=== PATIENT | female | born 1945 | race Caucasian/White ===

== ENCOUNTER 2020-01-09 09:11 | Emergency (ER) | payer MEDICARE ==
--- NOTE | 2020-01-09 09:46 | ER Document Report ---
ED Medical Screen (RME) - General Chief Complaint: Dizziness Stated Complaint: DIZZINESS Time Seen by Provider: 01/09/20 09:43 Primary Care Provider: KINZA WEBBER MD [Primary Care Provider] - Follow up as needed Mode of Arrival: Wheelchair Information source: Patient Notes: 74-year-old female presented to ED for dizziness since yesterday. She states she has no balance has not yet fallen. She states she has been getting nauseated as well. Is never had the dizziness before. She states for the last couple nights she has had severe leg cramps. She does have a history of blood pressure cholesterol and diabetes. She states she has not checked her blood sugar this morning. Patient is alert oriented respirations regular nonlabored speaking in full sentences. I have greeted and performed a rapid initial assessment of this patient. A comprehensive ED assessment and evaluation of the patient, analysis of test results and completion of medical decision making process will be conducted by an additional ED providers. TRAVEL OUTSIDE OF THE [place] IN LAST 30 DAYS: No - Related Data Allergies/Adverse Reactions: No Known Allergies Allergy (Verified 01/09/20 09:39) Past Medical History - Past Medical History Cardiac Medical History: Reports: Hx Hypertension - CONTROLLED Denies: Hx Heart Attack Pulmonary Medical History: Denies: Hx Asthma Neurological Medical History: Denies: Hx Cerebrovascular Accident, Hx Seizures GI Medical History: Denies: Hx Hepatitis, Hx Hiatal Hernia, Hx Ulcer Infectious Medical History: Denies: Hx Hepatitis Past Surgical History: Denies: Hx Mastectomy, Hx Open Heart Surgery, Hx Pacemaker Physical Exam - Vital signs Vitals: Temp Pulse Resp BP Pulse Ox 97.5 F 99 18 122/83 99 01/09/20 09:13 01/09/20 09:13 01/09/20 09:13 01/09/20 09:13 01/09/20 09:13 Course - Vital Signs Vital signs: Temp Pulse Resp BP Pulse Ox 97.5 F 99 18 122/83 99 01/09/20 09:13 01/09/20 09:13 01/09/20 09:13 01/09/20 09:13 01/09/20 09:13 Doctor's Discharge - Discharge Referrals: KINZA WEBBER MD [Primary Care Provider] - Follow up as needed
[2020-01-09 10:34] LABS: ABSOLUTE LYMPHOCYTES (AUTO) 1.2 10^3/uL (0.5-4.7); ABSOLUTE MONOCYTES (AUTO) 0.3 10^3/uL (0.1-1.4); ABSOLUTE NEUT (AUTO) 5.5 10^3/uL (1.7-8.2); BASOPHILS % (AUTO) 0.3 % (0-2); EOSINOPHILS % (AUTO) 0.1 % (0-6); HEMATOCRIT 33.7 % (36.0-47.0); HEMOGLOBIN 12.2 g/dL (12.0-15.5); LYMPHOCYTES % (AUTO) 16.9 % (13-45); MEAN CORPUSCULAR HEMOGLOBIN 33.1 pg (27.0-33.4); MEAN CORPUSCULAR HGB CONC 36.2 g/dL (32.0-36.0); MEAN CORPUSCULAR VOLUME 91 fl (80-97); MONOCYTES % (AUTO) 4.2 % (3-13); PLATELET COUNT 181 10^3/uL (150-450); RED BLOOD COUNT 3.69 10^6/uL (3.72-5.28); SEGMENTED NEUTROPHILS % (AUTO) 78.5 % (42-78); TOTAL CELLS COUNTED % (AUTO) 100 %
[2020-01-09 10:55] LABS: ALBUMIN 4.8 g/dL (3.5-5.0); ALKALINE PHOSPHATASE 77 U/L (38-126); ANION GAP 11 (5-19); ASPARTATE AMINO TRANSFERASE 21 U/L (14-36); BILIRUBIN,TOTAL 0.4 mg/dL (0.2-1.3); BLOOD UREA NITROGEN 10 mg/dL (7-20); CALCIUM 9.4 mg/dL (8.4-10.2); CARBON DIOXIDE 29 mmol/L (22-30); CHLORIDE 89 mmol/L (98-107); CREATINE KINASE 38 U/L (30-135); GLUCOSE 146 mg/dL (75-110); POTASSIUM 4.4 mmol/L (3.6-5.0); TOTAL PROTEIN 8.1 g/dL (6.3-8.2)
[2020-01-09 10:58] LABS: ANISOCYTOSIS 2+; OVALOCYTES SLIGHT; POIKILOCYTOSIS 1+; POLYCHROMASIA SLIGHT
[2020-01-09 10:59] LABS: PLATELET COMMENT ADEQUATE; STOMATOCYTES SLIGHT
[2020-01-09 11:06] LABS: CREATINE KINASE MB 1.14 ng/mL (<4.55)
[2020-01-09 11:07] LABS: TROPONIN I < 0.012 ng/mL
--- NOTE | 2020-01-09 11:16 | EKG REPORT ---
SEVERITY:- NORMAL ECG - SINUS RHYTHM : Confirmed by: Stephanie Melton MD 09-Jan-2020 11:14:29
[2020-01-09] MEDS ORDERED: MECLIZINE HCL 25 MG TABLET PO ONE (12:08)
[2020-01-09] MEDS ORDERED: ONDANSETRON HCL INJ/PF 4 MG/2 ML SDV IV ONE (12:11)
--- NOTE | 2020-01-09 12:13 | ER Document Report ---
ED Dizziness/Weakness - General Chief Complaint: Dizziness Stated Complaint: DIZZINESS Time Seen by Provider: 01/09/20 09:43 Primary Care Provider: KINZA WEBBER MD [Primary Care Provider] - Follow up in 3-5 days Mode of Arrival: Wheelchair Notes: Patient is a 74-year-old female who presents to the emergency department with a chief complaint of dizziness and leg cramps that started yesterday. Patient has a past medical history of hypertension and hyperlipidemia. She is also on metfo rmin for prediabetes. Patient states that her dizziness gets worse when she stands up. Patient denies any numbness or tingling in her arms or legs. States that when she stands up, she "feels off." TRAVEL OUTSIDE OF THE [place] IN LAST 30 DAYS: No - Related Data Allergies/Adverse Reactions: No Known Allergies Allergy (Verified 01/09/20 09:39) Home Medications: atrovastatin. lisinopril. metformin Past Medical History - General Information source: Patient - Social History Smoking Status: Former Smoker Chew tobacco use (# tins/day): No Frequency of alcohol use: Social Drug Abuse: None Family History: Reviewed & Not Pertinent Patient has suicidal ideation: No Patient has homicidal ideation: No - Past Medical History Cardiac Medical History: Reports: Hx Hypercholesterolemia, Hx Hypertension - CONTROLLED Denies: Hx Heart Attack Pulmonary Medical History: Denies: Hx Asthma Neurological Medical History: Denies: Hx Cerebrovascular Accident, Hx Seizures Endocrine Medical History: Reports: Hx Diabetes Mellitus Type 2 GI Medical History: Denies: Hx Hepatitis, Hx Hiatal Hernia, Hx Ulcer Infectious Medical History: Denies: Hx Hepatitis Past Surgical History: Denies: Hx Mastectomy, Hx Open Heart Surgery, Hx Pacemaker Review of Systems - Review of Systems Notes: REVIEW OF SYSTEMS: CONSTITUTIONAL : Denies recent illness. Denies recent unintentional weight loss. Denies fever, chills, or sweats. EENT: Denies eye, ear, throat, or mouth pain, discharge, or symptoms. Denies na marita or sinus congestion. CARDIOVASCULAR: Denies chest pain. RESPIRATORY: Denies shortness of breath, cough, congestion, difficulty breathing, or wheezing. GASTROINTESTINAL: Denies nausea, vomiting, and diarrhea. Denies abdominal pain. Denies constipation. GENITOURINARY: Denies difficulty urinating, burning, blood in urine, urgency or frequency. MUSCULOSKELETAL: Denies neck and back pain. Denies joint pain or swelling. SKIN: Denies rash, itchiness, or lesions HEMATOLOGIC : Denies easy bruising or bleeding. LYMPHATIC: Denies swollen, painful, enlarged glands. NEUROLOGICAL: Denies no numbness or tingling denies weakness. Denies headache. Denies altered mental status. Denies alteration in speech. See HPI. PSYCHIATRIC: Denies stress, anxiety, alteration in sleep patterns, or de pression. All other systems reviewed and negative. Physical Exam - Vital signs Vitals: Temp Pulse Resp BP Pulse Ox 97.5 F 99 18 122/83 99 01/09/20 09:13 01/09/20 09:13 01/09/20 09:13 01/09/20 09:13 01/09/20 09:13 - Notes Notes: PHYSICAL EXAMINATION: GENERAL: Appears well, healthy, well-nourished, no acute distress. HEAD: Normocephalic, atraumatic. EYES: PERRL, conjunctiva normal, all extraocular movements intact, sclera nonicteric, nystagmus noted. ENT: Moist mucous membranes. NECK: Supple, no noticeable swelling, redness, rash. Normal range of motion. LUNGS: Equal breath sounds bilaterally and clear to auscultation. No wheezes rales or rhonchi. CARDIOVASCULAR: S1-S2, regular rate, regular rhythm. Radial pulses 2+, normal. ABDOMEN: Normoactive bowel sounds. Soft, nontender, no guarding, no rebound tenderness, and no masses palpated. EXTREMITIES: Normal strength and range of motion, no pitting or edema. No cyanosis. NEUROLOGICAL: Moves all extremities upon command. Strength 5/5 in all extremities. PSYCH: Normal mood, normal affect. SKIN: Warm, dry. No rash, lesions, ulcerations noted. Normal skin turgor. Course - Re-evaluation Re-evalutation: 01/09/20 14:00 I have reevaluated the patient. Patient states that she feels a little bit better and little less dizzy after receiving meclizine. Awaiting urinalysis. Patient's magnesium was 1.5 and 2 g of magnesium were ordered. She will also receive a liter of fluids. 01/09/20 15:45 Discussed this case with Dr. Fuentes. Patient states that she still feels a little dizzy. We will start her on Valium. No neurological deficits noted again. Patient states that her daughter does not live far away, but she is able to stay with her daughter for the night. 01/09/20 18:12 Patient states that she feels much better after receiving the Valium. She will be sent home with meclizine to help with her symptoms. Patient will follow-up with her primary care provider. Follow-up precautions were given. Verbal discharge instructions were given to the patient. They verbalized understanding. They are stable for discharge. - Vital Signs Vital signs: Temp Pulse Resp BP Pulse Ox 98.3 F 66 18 135/82 H 100 01/09/20 18:40 01/09/20 18:40 01/09/20 18:40 01/09/20 18:40 01/09/20 18:40 - Laboratory Result Diagrams: 01/09/20 10:22 01/09/20 10:22 Laboratory results interpreted by me: 01/09/20 01/09/20 01/09/20 10:02 10:22 10:22 RBC 3.69 L Hct 33.7 L MCHC 36.2 H RDW 20.0 H Seg Neutrophils % 78.5 H Sodium 129.0 L Chloride 89 L Creatinine 0.50 L Glucose 146 H POC Glucose 157 H Magnesium 1.5 L Urine Protein 01/09/20 14:20 RBC Hct MCHC RDW Seg Neutrophils % Sodium Chloride Creatinine Glucose POC Glucose Magnesium Urine Protein 30 H - EKG Interpretation by Me Additional EKG results interpreted by me: 01/09/20 13:44 Sinus rhythm. Rate 64. IA 172; QRS 84; QT 436; QTc 450. No ST elevations or depressions noted. Discharge - Discharge Clinical Impression: Dizziness, Vertigo Condition: Stable Disposition: HOME, SELF-CARE Instructions: Antinausea Medication ([facility]), Dizziness ([facility]), Meclizine ([facility]), Vertigo ([facility]) Additional Instructions: Dizziness Under normal circumstances, your sense of balance is controlled by a number of signals that your brain receives from several locations: Eyes. No matter what your position, visual signals help you determine where your body is in space and how it's moving. Sensory nerves. These are in your skin, muscles and joints. Sensory nerves send messages to your brain about body movements and positions. Inner ear. The organ of balance in your inner ear is the vestibular labyrinth. It includes loop-shaped structures (semicircular canals) that contain fluid and fine, hair-like sensors that monitor the rotation of your head. Near the semicircular canals are the utricle and saccule, which contain tiny particles called otoconia ([id number]). These particles are attached to sensors that help detect gravity and kqiw-kip-ninay motion. Good balance depends on at least two of these three sensory systems working well. For instance, closing your eyes while washing your hair in the shower doesn't mean you'll lose your balance. Signals from your inner ear and sensory nerves help keep you upright. However, if your central nervous system can't process signals from all of these locations, if the messages are contradictory, or if the sensory systems aren't functioning properly, you may experience loss of balance. Dizziness may have a number of potential causes. These may include: Vertigo Vertigo - the false sense of motion or spinning - is the most common symptom of dizziness. Sitting up or moving around may make it worse. Sometimes vertigo is severe enough to cause nausea and vomiting. Vertigo usually results from a problem with the nerves and the structures of the balance mechanism in your inner ear (vestibular system), which sense movement and changes in your head position. Abnormal rhythmic eye movements (nystagmus) almost always accompany vertigo. Causes of vertigo may include: Benign paroxysmal positional vertigo (BPPV). BPPV involves intense, brief episodes of vertigo associated with a change in the position of your head, often when you turn over in bed or sit up in the morning. It occurs when normal calcium carbonate crystals (otoconia) break loose and fall into the wrong part of the canals in your inner ear. When these particles shift, they stimulate sensors in your ear, producing an episode of vertigo. Doctors don't know what causes BPPV, but it may be a natural result of aging. Trauma to your head also may lead to BPPV. Inflammation in the inner ear. Signs and symptoms of inflammation of the inner ear (acute vestibular neuronitis or labyrinthitis) include sudden, intense vertigo that may persist for several days, with nausea and vomiting. It can be incapacitating, requiring bed rest to minimize the signs and symptoms. Fortu nately, vestibular neuronitis generally subsides and clears up on its own. Recovery time may be shorter with vestibular rehabilitation exercises. Although the cause of this condition is unknown, it may be a viral infection. Meniere's disease. This disease involves the excessive buildup of fluid in your inner ear. It may affect adults at any age and is characterized by sudden episodes of vertigo lasting 30 minutes to an hour or longer. Other signs and symptoms include the feeling of fullness in your ear, buzzing or ringing in your ear (tinnitus), and fluctuating hearing loss. The cause of Meniere's disease is unknown. Vestibular migraine. People who experience a vestibular migraine are very sensitive to motion. Dizziness and vertigo caused by a vestibular migraine may be triggered by turning your head quickly, being in a crowded or confusing place, driving or riding in a vehicle, or even watching movement on TV. A vestibular migraine may cause feelings of imbalance or unsteadiness, hearing loss, "muffled" hearing, or ringing in your ears (tinnitus). For most people with a vestibular migraine, vertigo doesn't necessarily happen at the same time as the headache. Instead, typical migraine triggers may lead to vertigo without an actual migraine. Attacks of migrainous vertigo can last from a few minutes to several days. Acoustic neuroma. An acoustic neuroma (schwannoma) is a noncancerous (benign) growth on the acoustic nerve, which connects the inner ear to your brain. Signs and symptoms of an acoustic neuroma may include dizziness, loss of balance, hearing loss and tinnitus. Rapid changes in motion. Riding on roller coasters or in boats, cars or even airplanes may on occasion make you dizzy. Other causes. Rarely, vertigo can be a symptom of a more serious neurologi christian problem such as a stroke, brain hemorrhage or multiple sclerosis. Feeling of faintness (presyncope) "Presyncope" is the medical term for feeling faint and lightheaded without losing consciousness. Sometimes nausea, pale skin and a sense of dizziness accompany a feeling of faintness. Causes of presyncope include: Drop in blood pressure (orthostatic hypotension). A dramatic drop in your systolic blood pressure - the higher number in your blood pressure reading - may result in lightheadedness or a feeling of faintness. It can occur after sitting up or standing too quickly. Inadequate output of blood from the heart. Conditions such as partially blocked arteries (atherosclerosis), disease of the heart muscle (cardiomyopathy), abnormal heart rhythm (arrhythmia) or a decrease in blood volume may cause inadequate blood flow from your heart. Loss of balance (disequilibrium) Disequilibrium is the loss of balance or the feeling of unsteadiness when you walk. Causes may include: Inner ear (vestibular) problems. Abnormalities with your inner ear can cause you to feel like you are floating, have a heavy head or are unsteady in the dark. Sensory disorders. Failing vision and nerve damage in your legs (peripheral neuropathy) are common in older adultsand may result in difficulty maintaining your balance. Joint and muscle problems. Muscle weakness and osteoarthritis - the type of arthritis that involves wear and tear of your joints - can contribute to loss of balance when it involves your weight-bearing joints. Medications. Loss of balance can be a side effect of certain medications, such as anti-seizure drugs, sedatives and tranquilizers. Lightheadedness and other kinds of 'dizziness' Feeling lightheaded is the feeling of being "spaced out" or having the sensation of spinning inside your head. It can also give you the sensation that if your l ightheadedness worsens, you might lose consciousness. Causes may include: Inner ear disorders. These abnormalities of your inner ear can lead to illusions of motion and make you feel like you're floating. Anxiety disorders. Certain anxiety disorders, such as panic attacks and a fear of leaving home or being in large, open spaces (agoraphobia), may cause lightheadedness. Hyperventilation. Abnormally rapid breathing that often accompanies anxiety disorders may make you feel lightheaded. Prescriptions: Ondansetron [Zofran Odt 4 mg Tablet] 4 mg PO Q4HP PRN #30 tab.rapdis PRN Reason: Meclizine HCl [Antivert 25 mg Tablet] 25 mg PO TID PRN #21 tablet PRN Reason: Referrals: KINZA WEBBER MD [Primary Care Provider] - Follow up in 3-5 days
--- NOTE | 2020-01-09 12:43 | RADIOLOGY REPORT (SQ) ---
EXAM DESCRIPTION: CT HEAD WITHOUT COMPLETED DATE/TIME: 01/09/2020 12:26 pm REASON FOR STUDY: dizziness; nystagmus COMPARISON: None. TECHNIQUE: Axial images acquired through the brain without intravenous contrast. Images reviewed wi th bone, brain and subdural windows. Additional sagittal and coronal reconstructions were generated. Images stored on PACS. All CT scanners at this facility use dose modulation, iterative reconstruction, and/or weight based d osing when appropriate to reduce radiation dose to as low as reasonably achievable (ALARA). [facility]: Dose Right [facility]: CareDose [facility]: Dose Right [facility]: Teradose 4D [facility]: Cernium RADIATION DOSE: CT Rad equipment meets quality standard of care and radiation dose reduction techniq ues were employed. CTDIvol: 53.2 mGy. DLP: 1044 mGy-cm. mGy. LIMITATIONS: None. FINDINGS: VENTRICLES: Prominent. CEREBRUM: No masses. No hemorrhage. No midline shift. Areas of low density in the white matter mos t likely due to chronic micro-vascular ischemic change. No evidence for acute infarction. CEREBELLUM: No masses. No hemorrhage. No alteration of density. No evidence for acute infarction. EXTRAAXIAL SPACES: Mild age-related involutional change. No fluid collections. No masses. ORBITS AND GLOBE: No intra- or extraconal masses. Normal contour of globe without masses. CALVARIUM: No fracture. PARANASAL SINUSES: No fluid or mucosal thickening. SOFT TISSUES: No mass or hematoma. OTHER: No other significant finding. IMPRESSION: No evidence of acute intracranial process. Mild nonspecific white matter changes, likely sequelae of microangiopathic disease. EVIDENCE OF ACUTE STROKE: NO. TECHNICAL DOCUMENTATION: JOB ID: [id number] Quality ID # [id number]: Final reports with documentation of one or more dose reduction techniques (e.g., Au tomated exposure control, adjustment of the mA and/or kV according to patient size, use of iterative reconstruction technique) 2010 [employer]- All Rights Reserved Reading location - IP/workstation name: [email or web address]
[2020-01-09] MEDS: MAGNESIUM SULFATE/D5W 1 GM/100 ML RTUPB IV SCH ×2 (13:13→14:32)
[2020-01-09] MEDS ORDERED: NORMAL SALINE 1000 ML 1,000 ML IV ONE (13:25)
[2020-01-09 14:46] LABS: APPEARANCE,URINE CLOUDY; BILIRUBIN,URINE NEGATIVE (NEGATIVE); COLOR,URINE YELLOW; GLUCOSE, URINE NEGATIVE (NEGATIVE); KETONES,URINE NEGATIVE (NEGATIVE); LEUKOCYTE ESTERASE,URINE NEGATIVE (NEGATIVE); NITRITE,URINE NEGATIVE (NEGATIVE); PROTEIN,URINE 30 mg/dL (NEGATIVE); URINE SPECIFIC GRAVITY 1.011; UROBILINOGEN,URINE NEGATIVE mg/dL (<2.0)
[2020-01-09] MEDS ORDERED: DIAZEPAM 2 MG TABLET PO ONE (15:45)
[2020-01-09 18:52] VITALS: BP 135/82
== END 2020-01-09 18:45 | disposition home or self-care (01) ==
LOC: ER 09:11
DX: R42 Dizziness and giddiness (principal); H55.00 Unspecified nystagmus; R25.2 Cramp and spasm; I10 Essential (primary) hypertension; E78.00 Pure hypercholesterolemia, unspecified; E78.5 Hyperlipidemia, unspecified; R73.03 Prediabetes; Z79.84 Long term (current) use of oral hypoglycemic drugs; Z79.899 Other long term (current) drug therapy; Z87.891 Personal history of nicotine dependence
CPT/HCPCS: 93005; 99284; 96361; 96375; 96365; 96366; 36415; 82553; 82962; 82550; 83735; 85025; 80053; 81001; 84484; 70450; 93010; A9270 ×2; J3475; J2405; J7030; J3490

== ENCOUNTER 2020-01-29 07:16 | Inpatient (IN) | payer MEDICARE ==
[2020-01-29] MEDS ORDERED: KETOROLAC TROMETHAMINE INJ/PF 30 MG/1 ML SDV IV ONE (07:51)
--- NOTE | 2020-01-29 08:03 | EKG REPORT ---
SEVERITY:- NORMAL ECG - SINUS RHYTHM : Confirmed by: Stephanie Melton MD 29-Jan-2020 08:03:08
--- NOTE | 2020-01-29 08:08 | ER Document Report ---
ED General - General Chief Complaint: Hand Pain Stated Complaint: BILATERAL HAND PAIN Primary Care Provider: KINZA WEBBER MD [Primary Care Provider] - Follow up as needed Mode of Arrival: Ambulatory Information source: Patient TRAVEL OUTSIDE OF THE [place] IN LAST 30 DAYS: No - HPI Notes: This is a 74-year-old female with history of diabetes and hypertension who is presenting to the emergency department this morning after a syncopal episode. She states that she was doing well yesterday and her normal state of health. This morning she woke up she felt well with the exception of some tingling in both hands took her medicines and sat down at the breakfast table and then subsequently briefly passed out. She woke up with her head on the table and the complaint of severe bilateral hand pain. She had no aura, chest pain, dyspnea, or palpitations. She denies history of prior syncopal episodes. She said no redness or swelling to her hands and she denies any significant trauma. She has no history of rheumatoid arthritis. She woke up after the episode normally and presented to the emergency department for evaluation of her severe hand pain. The pain is unremitting, worsened by movement, and not relieved by keeping her hands still. - Related Data Allergies/Adverse Reactions: No Known Allergies Allergy (Verified 01/09/20 09:39) Home Medications: Atorvastatin, Metformin, Lisinopril Past Medical History - General Information source: Patient - Social History Smoking Status: Never Smoker Frequency of alcohol use: None Drug Abuse: None Family History: Reviewed & Not Pertinent Patient has suicidal ideation: No Patient has homicidal ideation: No - Past Medical History Cardiac Medical History: Reports: Hx Hypercholesterolemia, Hx Hypertension - CONTROLLED Denies: Hx Heart Attack Pulmonary Medical History: Denies: Hx Asthma EENT Medical History: Reports: None Neurological Medical History: Denies: Hx Cerebrovascular Accident, Hx Seizures Endocrine Medical History: Reports: Hx Diabetes Mellitus Type 2 GI Medical History: Denies: Hx Hepatitis, Hx Hiatal Hernia, Hx Ulcer Infectious Medical History: Denies: Hx Hepatitis Past Surgical History: Denies: Hx Mastectomy, Hx Open Heart Surgery, Hx Pacemaker Review of Systems - Review of Systems Constitutional: denies: No symptoms reported, See HPI, Chills, Diaphoresis, Fever, Malaise, Weakness, Other, Weight gain, Weight loss, Recent illness EENT: No symptoms reported Cardiovascular: Syncope. denies: See HPI, Chest pain, Palpitations, Heart racin g, Orthopnea, Dyspnea, Dizziness, Lightheaded, Edema, Other, Paroxysmal Nocturnal Dysp Respiratory: No symptoms reported Gastrointestinal: No symptoms reported Genitourinary: No symptoms reported Female Genitourinary: No symptoms reported Musculoskeletal: See HPI Skin: No symptoms reported Hematologic/Lymphatic: No symptoms reported Neurological/Psychological: See HPI Physical Exam - Vital signs Vitals: Temp Pulse Resp BP Pulse Ox 97.3 F 69 16 105/60 96 01/29/20 07:26 01/29/20 07:26 01/29/20 07:26 01/29/20 07:26 01/29/20 07:26 - General In distress: None - HEENT Head: Normocephalic, Atraumatic Eyes: Normal Pupils: PERRL - Respiratory Respiratory status: No respiratory distress Chest status: Nontender Breath sounds: Normal Chest palpation: Normal - Cardiovascular Rhythm: Regular Heart sounds: Normal auscultation Murmur: No Pulses: Normal: Brachial, Radial, Posterior tibial, Dorsalis pedis - Abdominal Inspection: Normal Distension: No distension Bowel sounds: Normal Tenderness: Nontender Organomegaly: No organomegaly - Back Back: Normal, Nontender - Extremities General upper extremity: Tender - Diffuse bilateral hand tenderness, no erythema or edema, no deformity or external signs of trauma - Neurological Neuro grossly intact: Yes Cognition: Normal Orientation: AAOx4 Nhi Coma Scale Eye Opening: Spontaneous Nhi Coma Scale Verbal: Oriented Nhi Coma Scale Motor: Obeys Commands Climax Coma Scale Total: 15 Speech: Normal Motor strength normal: LUE, RUE, LLE, RLE Sensory: Normal - Psychological Associated symptoms: Normal affect, Normal mood - Skin Skin Temperature: Warm Skin Moisture: Dry Skin Color: Normal Course - Vital Signs Vital signs: Temp Pulse Resp BP Pulse Ox 97.3 F 69 11 L 145/73 H 96 01/29/20 07:54 01/29/20 07:54 01/29/20 10:01 01/29/20 10:00 01/29/20 10:01 - Laboratory Result Diagrams: 01/29/20 07:47 01/29/20 07:47 Laboratory results interpreted by me: 01/29/20 01/29/20 01/29/20 07:36 07:47 07:47 RBC 3.16 L Hgb 10.4 L Hct 28.1 L MCHC 36.9 H RDW 20.4 H Sodium 122.3 L Chloride 87 L Glucose 129 H POC Glucose 147 H Discharge - Discharge Clinical Impression: Hyponatremia, Syncope, Bilateral hand pain Condition: Fair Disposition: ADMITTED INPATIENT Admitting Provider: Hospitalist : [facility] Unit Admitted: Telemetry Referrals: KINZA WEBBER MD [Primary Care Provider] - Follow up as needed
--- NOTE | 2020-01-29 08:22 | RADIOLOGY REPORT (SQ) ---
EXAM DESCRIPTION: CHEST 2 VIEWS IMAGES COMPLETED DATE/TIME: 01/29/2020 8:13 am REASON FOR STUDY: Syncope COMPARISON: None. EXAM PARAMETERS: NUMBER OF VIEWS: two views TECHNIQUE: Digital Frontal and Lateral radiographic views of the chest acquired. RADIATION DOSE: NA LIMITATIONS: none FINDINGS: LUNGS AND PLEURA: Focal airspace disease in the right base. Possibly pulmonary nodule. L andres cotto are otherwise clear. No effusions. MEDIASTINUM AND HILAR STRUCTURES: No masses or contour abnormalities. HEART AND VASCULAR STRUCTURES: Heart normal size. No evidence for failure. BONES: No acute findings. HARDWARE: None in the chest. OTHER: No other significant finding. IMPRESSION: Focal small less than 1 cm opacity in the right base. Possibly scar or confluence of sh adows. Focal airspace disease or pulmonary nodule cannot be excluded. TECHNICAL DOCUMENTATION: JOB ID: [id number] 2010 [employer]- All Rights Reserved Reading location - IP/workstation name: [email or web address]
[2020-01-29 08:26] LABS: ALBUMIN 4.3 g/dL (3.5-5.0); ALKALINE PHOSPHATASE 82 U/L (38-126); ANION GAP 13 (5-19); ASPARTATE AMINO TRANSFERASE 22 U/L (14-36); BILIRUBIN,TOTAL 0.4 mg/dL (0.2-1.3); BLOOD UREA NITROGEN 16 mg/dL (7-20); CALCIUM 9.1 mg/dL (8.4-10.2); CARBON DIOXIDE 22 mmol/L (22-30); CHLORIDE 87 mmol/L (98-107); CREATINE KINASE 48 U/L (30-135); GLUCOSE 129 mg/dL (75-110); POTASSIUM 3.9 mmol/L (3.6-5.0)
[2020-01-29 08:28] LABS: C-REACTIVE PROTEIN < 5.0 mg/L (<10.0)
[2020-01-29 08:29] LABS: ABSOLUTE LYMPHOCYTES (AUTO) 1.3 10^3/uL (0.5-4.7); ABSOLUTE MONOCYTES (AUTO) 0.4 10^3/uL (0.1-1.4); ABSOLUTE NEUT (AUTO) 5.5 10^3/uL (1.7-8.2); BASOPHILS % (AUTO) 0.2 % (0-2); EOSINOPHILS % (AUTO) 0.4 % (0-6); HEMATOCRIT 28.1 % (36.0-47.0); HEMOGLOBIN 10.4 g/dL (12.0-15.5); LYMPHOCYTES % (AUTO) 17.6 % (13-45); MEAN CORPUSCULAR HEMOGLOBIN 32.8 pg (27.0-33.4); MEAN CORPUSCULAR HGB CONC 36.9 g/dL (32.0-36.0); MEAN CORPUSCULAR VOLUME 89 fl (80-97); MONOCYTES % (AUTO) 6.1 % (3-13); PLATELET COUNT 189 10^3/uL (150-450); RED BLOOD COUNT 3.16 10^6/uL (3.72-5.28); RED CELL DISTRIBUTION WIDTH 20.4 % (11.5-14.0); SEGMENTED NEUTROPHILS % (AUTO) 75.7 % (42-78); TOTAL CELLS COUNTED % (AUTO) 100 %; WHITE BLOOD COUNT 7.2 10^3/uL (4.0-10.5)
[2020-01-29 08:36] LABS: ANISOCYTOSIS 2+; POIKILOCYTOSIS SLIGHT; TEAR DROP CELLS SLIGHT
[2020-01-29 08:37] LABS: OVALOCYTES SLIGHT; PLATELET COMMENT ADEQUATE; POLYCHROMASIA SLIGHT
[2020-01-29 08:39] LABS: CREATINE KINASE MB 1.14 ng/mL (<4.55)
[2020-01-29 08:41] LABS: ERYTHROCYTE SEDIMENTATION RATE 15 mm/hr (0-30)
[2020-01-29 08:44] LABS: TROPONIN I < 0.012 ng/mL
[2020-01-29] MEDS: MORPHINE SULFATE 10 MG/ML INJ IV PRN ×6 (08:46→22:47)
[2020-01-29 11:46] LABS: URINE CREATININE 44.3 mg/dL (15-278)
[2020-01-29] MEDS ORDERED: ONDANSETRON 4 MG TAB.RAPDIS PO PRN (13:27)
[2020-01-29] MEDS ORDERED: ONDANSETRON HCL INJ/PF 4 MG/2 ML SDV IV PRN (13:27)
[2020-01-29] MEDS ORDERED: ACETAMINOPHEN 325 MG TABLET PO PRN (13:27)
--- NOTE | 2020-01-29 13:58 | ADVANCED CARE ---
- Diagnosis (1) Syncope Diagnosis Current: Yes (2) Bilateral hand pain Diagnosis Current: Yes (3) Hyponatremia Diagnosis Current: Yes (4) HTN (hypertension) Diagnosis Current: Yes (5) HLD (hyperlipidemia) Diagnosis Current: Yes (6) T2DM (type 2 diabetes mellitus) Diagnosis Current: Yes Attendance: Patient Resuscitation Status: Full Code Discussion: All aspects of code status discussed with patient/POA including cardioversion, chest compressions, and intubation and the patient/POA indicated they wish to be full code MPOA is designated as: Phoebe John Time Spent: 17 minutes
--- NOTE | 2020-01-29 13:58 | PDOC H&P ---
History of Present Illness Admission Date/PCP: 01/29/20 11:07 KINZA WEBBER MD History of Present Illness: ROBERTO NEFF is a 74 year old female with past medical history as noted below who presented after a single syncopal episode at home which occurred while she was eating breakfast. She awoke with severe excruciating bilateral hand/finger pain which is worse with palpation. Patient denies hitting her head or any trauma to her hands. Patient denies any history of seizures or any seizure-like prodrome leading up to this event. Patient denies any cardiac arrhythmia history and denies CHF specifically. She denies any shortness of breath/chest pain/diarrhea/nausea/vomiting/abdominal pain/fever/chills/visual changes/weakness. ER did not get CT. CTA of the head and neck has been ordered. Carotid Doppler to review flow is also been ordered. Echocardiogram ordered. Also noteworthy, patient's sodium has dropped to 122 which patient states is a new finding as she has never experienced hyponatremia in the past. She voices that she is taking in a normal amount of food and drink. Trending BMP, osmolality and urine electrolytes ordered. Admitted for further work-up and treatment. Past Medical History Cardiac Medical History: Reports: Hyperlipidema, Hypertension - CONTROLLED Denies: Myocardial Infarction Pulmonary Medical History: Denies: Asthma EENT Medical History: Reports: None Neurological Medical History: Denies: Seizures Endocrine Medical History: Reports: Diabetes Mellitus Type 2 GI Medical History: Denies: Hepatitis, Hiatal Hernia Hematology: Denies: Anemia, Sickle Cell Disease Past Surgical History Past Surgical History: Reports: None Denies: Amputation, Mastectomy, Pacemaker Social History Information Source: Patient, Emergency Med Personnel, [facility] Records Lives with: Alone Smoking Status: Never Smoker Electronic Cigarette use?: Yes Frequency of Alcohol Use: Rare Hx Recreational Drug Use: No Drugs: None Hx Prescription Drug Abuse: No - Advance Directive Resuscitation Status: Full Code Surrogate healthcare decision maker:: Daughter: Phoebe John Family History Family History: Reviewed & Not Pertinent Parental Family History Reviewed: Yes Children Family History Reviewed: No Sibling(s) Family History Reviewed.: No Medication/Allergy Home Medications: Atorvastatin Calcium [Lipitor 20 mg Tablet] 20 mg PO QHS 01/29/20 Lisinopril/Hydrochlorothiazide [Lisinopril-Hctz 20-25 mg Tab] 1 each PO DAILY 01/29/20 Metformin HCl [Glucophage 500 mg Tablet] 500 mg PO BIDACBS 01/29/20 Allergies/Adverse Reactions: No Known Allergies Allergy (Verified 01/09/20 09:39) Review of Systems All systems: reviewed and no additional remarkable complaints except as stated - As noted per HPI otherwise negative Physical Exam Vital Signs: Temp Pulse Resp BP Pulse Ox 97.8 F 69 12 145/73 H 95 01/29/20 13:00 01/29/20 07:54 01/29/20 13:00 01/29/20 10:00 01/29/20 13:00 Intake & Output 01/28/20 01/29/20 01/30/20 06:59 06:59 06:59 Weight 68.9 kg General appearance: PRESENT: no acute distress, well-developed, well-nourished Head exam: PRESENT: atraumatic, normocephalic Eye exam: PRESENT: conjunctiva pink Mouth exam: PRESENT: moist Respiratory exam: PRESENT: clear to auscultation ayleen. ABSENT: rales, rhonchi, wheezes Cardiovascular exam: PRESENT: RRR. ABSENT: diastolic murmur, rubs, systolic murmur GI/Abdominal exam: PRESENT: normal bowel sounds, soft. ABSENT: distended, guarding, mass, organolmegaly, rebound, tenderness Rectal exam: PRESENT: deferred Neurological exam: PRESENT: alert, awake, oriented to person, oriented to place, oriented to time, oriented to situation, CN II-XII grossly intact. ABSENT: motor sensory deficit Psychiatric exam: PRESENT: appropriate affect, normal mood Skin exam: PRESENT: dry, intact, warm Results Laboratory Results: 01/29/20 07:47 01/29/20 07:47 01/29/20 01/29/20 01/29/20 07:47 07:47 07:47 WBC 7.2 RBC 3.16 L Hgb 10.4 L Hct 28.1 L MCV 89 MCH 32.8 MCHC 36.9 H RDW 20.4 H Plt Count 189 Seg Neutrophils % 75.7 Sodium 122.3 L Potassium 3.9 Chloride 87 L Carbon Dioxide 22 Anion Gap 13 BUN 16 Creatinine 0.62 Est GFR ( Amer) > 60 Glucose 129 H Serum Osmolality 252 L Calcium 9.1 Total Bilirubin 0.4 AST 22 Alkaline Phosphatase 82 C-Reactive Protein < 5.0 Total Protein 7.0 Albumin 4.3 Urine Osmolality 01/29/20 10:57 WBC RBC Hgb Hct MCV MCH MCHC RDW Plt Count Seg Neutrophils % Sodium Potassium Chloride Carbon Dioxide Anion Gap BUN Creatinine Est GFR ( Amer) Glucose Serum Osmolality Calcium Total Bilirubin AST Alkaline Phosphatase C-Reactive Protein Total Protein Albumin Urine Osmolality 302 01/29/20 01/29/20 01/29/20 07:47 07:47 10:43 Creatine Kinase 48 CK-MB (CK-2) 1.14 Troponin I < 0.012 < 0.012 Impressions: Chest X-Ray 01/29/20 07:43 IMPRESSION: Focal small less than 1 cm opacity in the right base. Possibly scar or confluence of shadows. Focal airspace disease or pulmonary nodule cannot be excluded. Assessment and Plan - Diagnosis (1) Syncope Qualifiers: Syncope type: unspecified Qualified Code(s): R55 - Syncope and collapse Is this a current diagnosis for this admission?: Yes Plan: Occurred while eating breakfast, no recurrence since single episode at home alone, unwitnessed Stroke/arterial insufficiency versus seizure versus cardiogenic from electrolyte abnormality CTA head and neck, noncontrast CT was not done in ED Echocardiogram Carotid Doppler Consider MRI brain if above is normal Gradually correct sodium back to at least 130 (2) Bilateral hand pain Is this a current diagnosis for this admission?: Yes Plan: Unclear etiology Consider hand x-rays Physical exam unremarkable other than generalized tenderness from wrist to fingertips, no palpable fractures Possible pain is from hands being in a strained uncomfortable position after syncopal episode occurred and patient remained unconscious for some time (3) Hyponatremia Is this a current diagnosis for this admission?: Yes Plan: -Sodium down to 122 on admission -Trend BMP every 6 hours We will ensure gradual controlled rise in sodium not to exceed 4 to 6 mmol/L in 1 day Consider consulting nephrology if we have difficulties managing sodium Unclear etiology: Possibly SIADH versus poor solute intake versus volume overload (4) HTN (hypertension) Is this a current diagnosis for this admission?: Yes Plan: Home medications (5) HLD (hyperlipidemia) Is this a current diagnosis for this admission?: Yes Plan: Statin (6) T2DM (type 2 diabetes mellitus) Qualifiers: Diabetes mellitus [facility] insulin use: without [facility] use Diabetes mellitus complication status: without complication Qualified Code(s): E11.9 - Type 2 diabetes mellitus without complications Is this a current diagnosis for this admission?: Yes Plan: Hold oral medications Accu-Cheks, low-dose corrective insulin - Time Time Spent with patient: 35 or more minutes Smoking Cessation Education: 3 to 10 minutes Medications reviewed and adjusted accordingly: Yes Anticipated discharge: Home Within: within 48 hours
[2020-01-29] MEDS: NORMAL SALINE 1000 ML 1,000 ML IV PRN (14:22)
--- NOTE | 2020-01-29 16:26 | RADIOLOGY REPORT (SQ) ---
EXAM DESCRIPTION: CTA NECK; CTA HEAD IMAGES COMPLETED DATE/TIME: 01/29/2020 4:05 pm REASON FOR STUDY: possible CVA vs arterial stenosis; syncope COMPARISON: CT brain 01/09/2020 TECHNIQUE: Post IV contrast scanning, thin section axial imaging through the brain to evaluate the a rterial structures. Source and MIP images are saved and reviewed on PACS. Advanced 3D imaging as volume-rendering, MIPs, SSD performed? yes All CT scanners at this facility use dose modulation, iterative reconstruction, and/or weight based d osing when appropriate to reduce radiation dose to as low as reasonably achievable (ALARA). [facility]: Dose Right [facility]: CareDose [facility]: Dose Right [facility]: Teradose 4D [facility]: RASILIENT SYSTEMS CONTRAST TYPE AND DOSE: contrast/concentration: Isovue mg/ml; Total Contrast Delivered: 80.0 ml; To octavio Saline Delivered: 75.0 ml RENAL FUNCTION: Creatinine 0.6 RADIATION DOSE: 53 mGy LIMITATIONS: None. FINDINGS: [place]: The anterior, middle, posterior cerebral arteries are all patent. No ev idence of aneurysm or focal stenosis. POSTERIOR CIRCULATION: The distal vertebral arteries are patent as is the basilar artery. No aneurysm . BRAIN: No gross enhancing lesions as visualized. The superior cerebral hemispheres are not included in the field of view. BONES: Intact as visualized. SINUSES: No fluid or mucosal thickening. OTHER: No other significant finding. AORTIC ARCH: Normal three-vessel origin. Direct origin of the left vertebral artery off the aorta, a n anatomic variant. Bilateral subclavian arteries are patent. No dissection. RIGHT CAROTIDS: Patent common, internal and external carotid arteries without suggestion of significa nt stenosis or irregular plaque. No dissection. RIGHT VERTEBRAL: Patent. No dissection. LEFT CAROTIDS: Patent common, internal and external carotid arteries without suggestion of significan t stenosis or irregular plaque. No dissection. LEFT VERTEBRAL: Patent. No dissection. OTHER: 3-D reconstructions confirm findings. Incidental finding of thyroid tissue between the brachiocephalic artery and left common carotid arter y on coronal image 66. IMPRESSION: NO CTA EVIDENCE OF STENOSIS OR ANEURYSM OF THE [place]. NO CTA EVIDENCE OF CERVICAL CAROTID DISSECTION OR SIGNIFICANT CAROTID BIFURCATION STENOSIS. VERTEBRA L ARTERIES PATENT. TECHNICAL DOCUMENTATION: JOB ID: [id number] Quality ID # [id number]: Final reports with documentation of one or more dose reduction techniques (e.g., Au tomated exposure control, adjustment of the mA and/or kV according to patient size, use of iterative reconstruction technique) 2010 [employer]- All Rights Reserved Reading location - IP/workstation name: [email or web address]
--- NOTE | 2020-01-29 16:26 | RADIOLOGY REPORT (SQ) ---
EXAM DESCRIPTION: CTA NECK; CTA HEAD IMAGES COMPLETED DATE/TIME: 01/29/2020 4:05 pm REASON FOR STUDY: possible CVA vs arterial stenosis; syncope COMPARISON: CT brain 01/09/2020 TECHNIQUE: Post IV contrast scanning, thin section axial imaging through the brain to evaluate the a rterial structures. Source and MIP images are saved and reviewed on PACS. Advanced 3D imaging as volume-rendering, MIPs, SSD performed? yes All CT scanners at this facility use dose modulation, iterative reconstruction, and/or weight based d osing when appropriate to reduce radiation dose to as low as reasonably achievable (ALARA). [facility]: Dose Right [facility]: CareDose [facility]: Dose Right [facility]: Teradose 4D [facility]: theDrop CONTRAST TYPE AND DOSE: contrast/concentration: Isovue mg/ml; Total Contrast Delivered: 80.0 ml; To octavio Saline Delivered: 75.0 ml RENAL FUNCTION: Creatinine 0.6 RADIATION DOSE: 53 mGy LIMITATIONS: None. FINDINGS: [place]: The anterior, middle, posterior cerebral arteries are all patent. No ev idence of aneurysm or focal stenosis. POSTERIOR CIRCULATION: The distal vertebral arteries are patent as is the basilar artery. No aneurysm . BRAIN: No gross enhancing lesions as visualized. The superior cerebral hemispheres are not included in the field of view. BONES: Intact as visualized. SINUSES: No fluid or mucosal thickening. OTHER: No other significant finding. AORTIC ARCH: Normal three-vessel origin. Direct origin of the left vertebral artery off the aorta, a n anatomic variant. Bilateral subclavian arteries are patent. No dissection. RIGHT CAROTIDS: Patent common, internal and external carotid arteries without suggestion of significa nt stenosis or irregular plaque. No dissection. RIGHT VERTEBRAL: Patent. No dissection. LEFT CAROTIDS: Patent common, internal and external carotid arteries without suggestion of significan t stenosis or irregular plaque. No dissection. LEFT VERTEBRAL: Patent. No dissection. OTHER: 3-D reconstructions confirm findings. Incidental finding of thyroid tissue between the brachiocephalic artery and left common carotid arter y on coronal image 66. IMPRESSION: NO CTA EVIDENCE OF STENOSIS OR ANEURYSM OF THE [place]. NO CTA EVIDENCE OF CERVICAL CAROTID DISSECTION OR SIGNIFICANT CAROTID BIFURCATION STENOSIS. VERTEBRA L ARTERIES PATENT. TECHNICAL DOCUMENTATION: JOB ID: [id number] Quality ID # [id number]: Final reports with documentation of one or more dose reduction techniques (e.g., Au tomated exposure control, adjustment of the mA and/or kV according to patient size, use of iterative reconstruction technique) 2010 [employer]- All Rights Reserved Reading location - IP/workstation name: [email or web address]
--- NOTE | 2020-01-29 16:38 | XCELERA REPORT ---
[address] [address] Transthoracic Echocardiogram Report Name: ROBERTO NEFF Age: 74 yrs Gender: Female : 1945 Patient Status: Inpatient Patient Location: [facility]^A Study Date: 01/29/2020 02:04 PM Height: 61 in Weight: 151 lb BSA: 1.7 m2 Procedure: A two-dimensional transthoracic echocardiogram with color flow and Doppler was performed. The study was technically difficult with many images being suboptimal in quality. Reason For Study: syncope History: syncope. Ordering Physician: GOPAL MARTIN Performed By: Jennifer Bess Interpretation Summary The left ventricle is normal in size. There is normal left ventricular wall thickness. LV EF is 60% to 65% Doppler measurements suggest impaired left ventricular relaxation, which is associated with grade I/IV or mild diastolic dysfunction The left ventricular wall motion is normal. There is no thrombus. No ASD,VSD , or PFO een. The right ventricle is grossly normal size. The right ventricle is not well visualized secondary to technical limitations The right atrium is normal. Right atrium not well visualized secondary to technical limitations The left atrial size is normal. There is no evidence of mitral valve prolapse. There is no vegetation seen on the mitral valve. There is no mitral valve stenosis. There is no mitral regurgitation noted. There is mild aortic stenosis There is a peak gradient of is 25 mm of Hg , and mean gradient of 12 mm of Hg. No hemodynamically significant valvular aortic stenosis. There is no LVOT obstruction. No aortic regurgitation is present. There is no tricuspid stenosis. There is a trace amount of tricuspid regurgitation Right ventricular systolic pressure is normal. RVSP is 23 to 28 mm of Hg , with a RA mean of 5 to 10. There is no pulmonic valvular stenosis. There is no pulmonic valvular regurgitation. The aortic root is normal size. The inferior vena cava appeared normal and decreased > 50% with respiration (RAP 5-10 mmHg) There is no pericardial effusion. MMode/2D Measurements & Calculations RVDd: 2.4 cm LVIDd: 4.1 cm FS: 30.9 % Ao root diam: 2.4 cm IVSd: 1.1 cm LVIDs: 2.8 cm EDV(Teich): 73.0 ml Ao root area: 4.5 cm2 LVPWd: 1.1 cm ESV(Teich): 29.9 ml EF(Teich): 59.0 % LVOT diam: 2.0 cm LVOT area: 3.0 cm2 Doppler Measurements & Calculations MV E max suzanna: MV dec slope: Ao V2 max: LV V1 max P.4 cm/sec 327.4 cm/sec2 245.3 cm/sec 6.1 mmHg MV A max suzanna: MV dec time: Ao max PG: LV V1 mean P.9 cm/sec 0.25 sec 24.1 mmHg 2.4 mmHg MV E/A: 0.63 Ao V2 mean: LV V1 max: 161.9 cm/sec 102.3 cm/sec Ao mean PG: LV V1 mean: 12.0 mmHg 52.6 cm/sec Ao V2 VTI: 46.8 cm LV V1 VTI: 17.8 cm CAROLA(I,D): 1.1 cm2 CAROLA(V,D): 1.3 cm2 SV(LVOT): 53.8 ml PA V2 max: TR max suzanna: 114.3 cm/sec 213.2 cm/sec PA max P.2 mmHg TR max P.3 mmHg Left Ventricle The left ventricle is normal in size. There is normal left ventricular wall thickness. LV EF is 60% to 65%. Doppler measurements suggest impaired left ventricular relaxation, which is associated with grade I/IV or mild diastolic dysfunction. The left ventricular wall motion is normal. There is no thrombus. No ASD,VSD , or PFO een. Right Ventricle The right ventricle is grossly normal size. The right ventricle is not well visualized secondary to technical limitations. Atria The right atrium is normal. Right atrium not well visualized secondary to technical limitations. The left atrial size is normal. Mitral Valve There is no evidence of mitral valve prolapse. There is no vegetation seen on the mitral valve. There is no mitral valve stenosis. There is no mitral regurgitation noted. Aortic Valve There is mild aortic stenosis. There is a peak gradient of is 25 mm of Hg , and mean gradient of 12 mm of Hg. No hemodynamically significant valvular aortic stenosis. There is no LVOT obstruction. No aortic regurgitation is present. Tricuspid Valve There is no tricuspid stenosis. There is a trace amount of tricuspid regurgitation. Right ventricular systolic pressure is normal. RVSP is 23 to 28 mm of Hg , with a RA mean of 5 to 10. Pulmonic Valve There is no pulmonic valvular stenosis. There is no pulmonic valvular regurgitation. Great Vessels The aortic root is normal size. The inferior vena cava appeared normal and decreased > 50% with respiration (RAP 5-10 mmHg). Effusions There is no pericardial effusion. : GOPAL MARTIN Lakshmi
[2020-01-29] MEDS: INSULIN LISPRO 100 UNIT/ML 3 ML VIAL SUBCUT SCH ×2 (18:13→22:43)
[2020-01-29 18:42] LABS: ANION GAP 12 (5-19); BLOOD UREA NITROGEN 13 mg/dL (7-20); CALCIUM 8.8 mg/dL (8.4-10.2); CARBON DIOXIDE 24 mmol/L (22-30); CHLORIDE 90 mmol/L (98-107); GLUCOSE 136 mg/dL (75-110); POTASSIUM 4.7 mmol/L (3.6-5.0)
[2020-01-30] MEDS: MORPHINE SULFATE 10 MG/ML INJ IV PRN ×7 (03:29→23:13)
[2020-01-30] MEDS: NORMAL SALINE 1000 ML 1,000 ML IV PRN ×2 (03:55→23:20)
[2020-01-30 05:20] LABS: ABSOLUTE LYMPHOCYTES (AUTO) 1.5 10^3/uL (0.5-4.7); ABSOLUTE MONOCYTES (AUTO) 0.6 10^3/uL (0.1-1.4); BASOPHILS % (AUTO) 0.3 % (0-2); EOSINOPHILS % (AUTO) 0.1 % (0-6); HEMATOCRIT 27.5 % (36.0-47.0); LYMPHOCYTES % (AUTO) 24.2 % (13-45); MEAN CORPUSCULAR HGB CONC 36.3 g/dL (32.0-36.0); MEAN CORPUSCULAR VOLUME 91 fl (80-97); MONOCYTES % (AUTO) 9.6 % (3-13); PLATELET COUNT 179 10^3/uL (150-450); RED BLOOD COUNT 3.03 10^6/uL (3.72-5.28); RED CELL DISTRIBUTION WIDTH 21.3 % (11.5-14.0); SEGMENTED NEUTROPHILS % (AUTO) 65.8 % (42-78); TOTAL CELLS COUNTED % (AUTO) 100 %; WHITE BLOOD COUNT 6.1 10^3/uL (4.0-10.5)
[2020-01-30 05:43] LABS: PHOSPHORUS 3.6 mg/dL (2.5-4.5)
[2020-01-30 05:53] LABS: ANISOCYTOSIS 2+; PLATELET COMMENT ADEQUATE
[2020-01-30] MEDS: INSULIN LISPRO 100 UNIT/ML 3 ML VIAL SUBCUT SCH ×4 (08:03→21:15)
[2020-01-30] MEDS: ENOXAPARIN SODIUM INJ 40 MG/0.4 ML DISP.SYRIN SUBCUT SCH (10:51)
--- NOTE | 2020-01-30 12:47 | PDOC PROGRESS REPORT ---
Subjective Progress Note for:: 01/30/20 Subjective:: No further syncopal episodes per patient. No other neurologic symptoms. She only complains of severe bilateral hand pain and requests these be x-rayed because she thinks she may have fallen on them when she syncopized. No new complaints other than this. Reason For Visit: HYPONATREMIA,SYNCOPE Physical Exam Vital Signs: Temp Pulse Resp BP Pulse Ox 98.6 F 76 16 148/79 H 96 01/30/20 07:26 01/30/20 07:26 01/30/20 07:26 01/30/20 07:26 01/30/20 07:26 Intake & Output 01/29/20 01/30/20 01/31/20 06:59 06:59 06:59 Intake Total 1240 Balance 1240 Weight 67.5 kg General appearance: PRESENT: no acute distress, well-developed, well-nourished Head exam: PRESENT: atraumatic, normocephalic Eye exam: PRESENT: conjunctiva pink Mouth exam: PRESENT: moist Respiratory exam: PRESENT: clear to auscultation ayleen. ABSENT: rales, rhonchi, wheezes Cardiovascular exam: PRESENT: RRR. ABSENT: diastolic murmur, rubs, systolic murmur GI/Abdominal exam: PRESENT: normal bowel sounds, soft. ABSENT: distended, guarding, mass, organolmegaly, rebound, tenderness Musculoskeletal exam: PRESENT: ambulatory, other - Both hands diffusely very painful and stiff per patient Neurological exam: PRESENT: alert, awake, oriented to person, oriented to place, oriented to time, oriented to situation, CN II-XII grossly intact Psychiatric exam: PRESENT: appropriate affect, normal mood Skin exam: PRESENT: dry, intact, warm Results Laboratory Results: 01/30/20 04:30 01/29/20 17:57 01/29/20 01/30/20 01/30/20 17:57 04:30 04:30 WBC 6.1 RBC 3.03 L Hgb 10.0 L Hct 27.5 L MCV 91 MCH 33.0 MCHC 36.3 H RDW 21.3 H Plt Count 179 Seg Neutrophils % 65.8 Sodium 125.8 L Potassium 4.7 Chloride 90 L Carbon Dioxide 24 Anion Gap 12 BUN 13 Creatinine 0.59 Est GFR ( Amer) > 60 Glucose 136 H Calcium 8.8 Phosphorus 3.6 Magnesium 2.1 01/29/20 01/29/20 01/29/20 07:47 07:47 10:43 Creatine Kinase 48 CK-MB (CK-2) 1.14 Troponin I < 0.012 < 0.012 Impressions: Head CTA 01/29/20 00:00 IMPRESSION: NO CTA EVIDENCE OF STENOSIS OR ANEURYSM OF THE [place]. NO CTA EVIDENCE OF CERVICAL CAROTID DISSECTION OR SIGNIFICANT CAROTID BIFURCATION STENOSIS. VERTEBRAL ARTERIES PATENT. Neck CTA 01/29/20 00:00 IMPRESSION: NO CTA EVIDENCE OF STENOSIS OR ANEURYSM OF THE [place]. NO CTA EVIDENCE OF CERVICAL CAROTID DISSECTION OR SIGNIFICANT CAROTID BIFURCATION STENOSIS. VERTEBRAL ARTERIES PATENT. Chest X-Ray 01/29/20 07:43 IMPRESSION: Focal small less than 1 cm opacity in the right base. Possibly scar or confluence of shadows. Focal airspace disease or pulmonary nodule cannot be excluded. Assessment and Plan - Diagnosis (1) Syncope Qualifiers: Syncope type: unspecified Qualified Code(s): R55 - Syncope and collapse Is this a current diagnosis for this admission?: Yes Plan: Occurred while eating breakfast and pt fell onto floor, no recurrence since single episode at home alone, unwitnessed ruled out Stroke/arterial insufficiency; possible seizure versus cardiogenic from electrolyte abnormality CTA head and neck, noncontrast CT was not done in ED Echocardiogram Consider MRI brain if symptoms return Gradually correct sodium back to at least 130 (2) Bilateral hand pain Is this a current diagnosis for this admission?: Yes Plan: Unclear etiology Ordered bilateral hand x-rays Physical exam unremarkable other than generalized tenderness from wrist to fingertips, no palpable fractures Possible pain is from hands being in a strained uncomfortable position after syncopal episode occurred and patient remained unconscious for some time; possible fractures or nerve damage at the flexor retinaculum (3) Hyponatremia Is this a current diagnosis for this admission?: Yes Plan: -Sodium down to 122 on admission, gradually coming up as intended -Trend BMP every 6 hours We will ensure gradual controlled rise in sodium not to exceed 4 to 6 mmol/L in 1 day Consider consulting nephrology if we have difficulties managing sodium Etiology is very likely related to her thiazide diuretic which will be stopped permanently, discussed with patient to not take this anymore (4) HTN (hypertension) Is this a current diagnosis for this admission?: Yes Plan: Home medication stopped specifically thiazide/lisinopril combo pill Replaced with nifedipine (5) HLD (hyperlipidemia) Is this a current diagnosis for this admission?: Yes (6) T2DM (type 2 diabetes mellitus) Qualifiers: Diabetes mellitus long term acute care registered nurse insulin use: without skilled nursing use Diabetes mellitus complication status: without complication Qualified Code(s): E11.9 - Type 2 diabetes mellitus without complications Is this a current diagnosis for this admission?: Yes - Time Time Spent with patient: 25-34 minutes Medications reviewed and adjusted accordingly: Yes Anticipated discharge: Home Within: within 48 hours - Inpatient Certification Based on my medical assessment, after consideration of the patient's comorbidities, presenting symptoms, or acuity I expect that the services needed warrant INPATIENT care.: Yes I certify that my determination is in accordance with my understanding of Medicare's requirements for reasonable and necessary INPATIENT services [42 CFR 412.3e].: Yes Medical Necessity: Significant Comorbidiites Make Outpatient Treatment Too R isky, Need Close Monitoring Due to Risk of Patient Decompensation, Need For IV Fluids
--- NOTE | 2020-01-30 13:49 | RADIOLOGY REPORT (SQ) ---
EXAM DESCRIPTION: HAND BILATERAL 3 VIEWS IMAGES COMPLETED DATE/TIME: 01/30/2020 1:27 pm REASON FOR STUDY: fall, possible fractures COMPARISON: None. EXAM PARAMETERS: NUMBER OF VIEWS: Three views. TECHNIQUE: AP, lateral and oblique radiographic images acquired of the right and left hand. LIMITATIONS: None. FINDINGS: MINERALIZATION: Normal. BONES: No acute fracture or dislocation. No worrisome bone lesions. JOINTS: No effusions. SOFT TISSUES: No soft tissue swelling. No foreign body. OTHER: No other significant finding. IMPRESSION: NEGATIVE STUDY OF THE RIGHT AND LEFT HANDS. NO RADIOGRAPHIC EVIDENCE OF ACUTE INJURY. TECHNICAL DOCUMENTATION: JOB ID: [id number] [employer]- All Rights Reserved Reading location - IP/workstation name: [email or web address]
[2020-01-30] MEDS: NIFEDIPINE 30 MG TAB.ER.24 PO SCH (13:55)
[2020-01-31] MEDS: MORPHINE SULFATE 10 MG/ML INJ IV PRN ×2 (02:10→05:04)
[2020-01-31] MEDS: INSULIN LISPRO 100 UNIT/ML 3 ML VIAL SUBCUT SCH (08:04)
[2020-01-31 08:10] VITALS: BP 127/77
[2020-01-31] MEDS: NIFEDIPINE 30 MG TAB.ER.24 PO SCH (09:29)
[2020-01-31] MEDS: ENOXAPARIN SODIUM INJ 40 MG/0.4 ML DISP.SYRIN SUBCUT SCH (09:30)
[2020-01-31 10:30] LABS: ANION GAP 10 (5-19); BLOOD UREA NITROGEN 10 mg/dL (7-20); CALCIUM 9.4 mg/dL (8.4-10.2); CARBON DIOXIDE 24 mmol/L (22-30); CHLORIDE 102 mmol/L (98-107); GLUCOSE 158 mg/dL (75-110); POTASSIUM 4.2 mmol/L (3.6-5.0)
--- NOTE | 2020-01-31 10:59 | PDOC DISCHARGE SUMMARY ---
Impression - Admit/DC Date/PCP Admission Date/Primary Care Provider: 01/30/20 10:33 KINZA WEBBER MD Discharge Date: 01/31/20 - Discharge Diagnosis (1) Syncope Is this a current diagnosis for this admission?: Yes (2) Bilateral hand pain Is this a current diagnosis for this admission?: Yes (3) Hyponatremia Is this a current diagnosis for this admission?: Yes (4) HTN (hypertension) Is this a current diagnosis for this admission?: Yes (5) HLD (hyperlipidemia) Is this a current diagnosis for this admission?: Yes (6) T2DM (type 2 diabetes mellitus) Is this a current diagnosis for this admission?: Yes - Additional Information Resuscitation Status: Full Code Discharge Diet: As Tolerated Discharge Activity: Activity As Tolerated Referrals: KINZA WEBBER MD [Primary Care Provider] - Follow up as needed Prescriptions: Nifedipine [Procardia XL 30 mg Tablet] 30 mg PO DAILY #30 tab.[email or web address].[id number] Home Medications: Atorvastatin Calcium [Lipitor 20 mg Tablet] 20 mg PO QHS 01/29/20 Metformin HCl [Glucophage 500 mg Tablet] 500 mg PO BIDACBS 01/29/20 Nifedipine [Procardia XL 30 mg Tablet] 30 mg PO DAILY #30 tab.er.[id number] 01/31/20 History of Present Illiness History of Present Illness: ROBERTO NEFF is a 74 year old female with past medical history as noted below who presented after a single syncopal episode at home which occurred while she was eating breakfast. She awoke with severe excruciating bilateral hand/finger pain which is worse with palpation. Patient denies hitting her head or any trauma to her hands. Patient denies any history of seizures or any seizure-like prodrome leading up to this event. Patient denies any cardiac arrhythmia history and denies CHF specifically. She denies any shortness of breath/chest pain/diarrhea/nausea/vomiting/abdominal pain/fever/chills/visual changes/weakness. ER did not get CT. CTA of the head and neck has been ordered. Carotid Doppler to review flow is also been ordered. Echocardiogram ordered. Also noteworthy, patient's sodium has dropped to 122 which patient states is a new finding as she has never experienced hyponatremia in the past. She voices that she is taking in a normal amount of food and drink. Trending BMP, osmolality and urine electrolytes ordered. Admitted for further work-up and treatment. Hospital Course Hospital Course: Admitted for syncopal episode, suspect patient may have been lying on her hands unconscious for a long period of time and may have strained them. X-rays did not show any fractures or acute findings. Hyponatremia on admission completely resolved by discharge. Thiazide diuretic will be discontinued permanently. Nifedipine was used to replace this blood pressure medication. She will follow- up with her primary care doctor and orthopedics hand specialist. (1) Syncoperesolved Occurred while eating breakfast and pt fell onto floor, no recurrence since single episode at home alone, unwitnessed ruled out Stroke/arterial insufficiency; possible seizure versus cardiogenic from electrolyte abnormality CTA head and neck, noncontrast CT was not done in ED Echocardiogram Consider MRI brain if symptoms return Gradually correct sodium back to at least 130 (2) Bilateral hand painimproved/resolving Unclear etiology, possibly mechanical strain from falling on them during syncopal episode Ordered bilateral hand x-rays which did not show any acute findings or fractures Physical exam unremarkable other than generalized tenderness from wrist to fingertips, no palpable fractures Possible pain is from hands being in a strained uncomfortable position after syncopal episode occurred and patient remained unconscious for some time; possible fractures or nerve damage at the flexor retinaculum (3) Hyponatremiaresolved -Sodium down to 122 on admission, gradually coming up as intended -Trend BMP every 6 hours We will ensure gradual controlled rise in sodium not to exceed 4 to 6 mmol/L in 1 day Consider consulting nephrology if we have difficulties managing sodium Etiology is very likely related to her thiazide diuretic which will be stopped permanently, discussed with patient to not take this anymore (4) HTN (hypertension) Home medication stopped specifically thiazide/lisinopril combo pill Replaced with nifedipine, good control (5) HLD (hyperlipidemia) (6) T2DM (type 2 diabetes mellitus) Physical Exam Vital Signs: Temp Pulse Resp BP Pulse Ox 98.2 F 78 18 127/77 H 95 01/31/20 07:56 01/31/20 08:00 01/31/20 08:00 01/31/20 08:00 01/31/20 08:00 Intake & Output 01/30/20 01/31/20 02/01/20 06:59 06:59 06:59 Intake Total 1240 1716 Balance 1240 1716 Weight 67.5 kg 67.3 kg General appearance: PRESENT: no acute distress, well-developed, well-nourished Head exam: PRESENT: atraumatic, normocephalic Eye exam: PRESENT: conjunctiva pink Mouth exam: PRESENT: moist Respiratory exam: PRESENT: clear to auscultation ayleen. ABSENT: rales, rhonchi, wheezes Cardiovascular exam: PRESENT: RRR. ABSENT: diastolic murmur, rubs, systolic murmur GI/Abdominal exam: PRESENT: normal bowel sounds, soft. ABSENT: distended, guarding, mass, organolmegaly, rebound, tenderness Rectal exam: PRESENT: deferred Extremities exam: PRESENT: tenderness - Mild bilateral hand pain, improving Neurological exam: PRESENT: alert, awake, oriented to person, oriented to place, oriented to time, oriented to situation, CN II-XII grossly intact. ABSENT: motor sensory deficit Psychiatric exam: PRESENT: appropriate affect, normal mood Skin exam: PRESENT: dry, intact, warm Results Laboratory Results: WBC 6.1 10^3/uL (4.0-10.5) 01/30/20 04:30 RBC 3.03 10^6/uL (3.72-5.28) L 01/30/20 04:30 Hgb 10.0 g/dL (12.0-15.5) L 01/30/20 04:30 Hct 27.5 % (36.0-47.0) L 01/30/20 04:30 MCV 91 fl (80-97) 01/30/20 04:30 MCH 33.0 pg (27.0-33.4) 01/30/20 04:30 MCHC 36.3 g/dL (32.0-36.0) H 01/30/20 04:30 RDW 21.3 % (11.5-14.0) H 01/30/20 04:30 Plt Count 179 10^3/uL (150-450) 01/30/20 04:30 Lymph % (Auto) 24.2 % (13-45) 01/30/20 04:30 [place] % (Auto) 9.6 % (3-13) 01/30/20 04:30 Eos % (Auto) 0.1 % (0-6) 01/30/20 04:30 Baso % (Auto) 0.3 % (0-2) 01/30/20 04:30 Absolute Neuts (auto) 4.0 10^3/uL (1.7-8.2) 01/30/20 04:30 Absolute Lymphs (auto) 1.5 10^3/uL (0.5-4.7) 01/30/20 04:30 Absolute Monos (auto) 0.6 10^3/uL (0.1-1.4) 01/30/20 04:30 Absolute Eos (auto) 0.0 10^3/uL (0.0-0.6) 01/30/20 04:30 Absolute Basos (auto) 0.0 10^3/uL (0.0-0.2) 01/30/20 04:30 Seg Neutrophils % 65.8 % (42-78) 01/30/20 04:30 Platelet Comment ADEQUATE 01/30/20 04:30 Polychromasia SLIGHT 01/29/20 07:47 Poikilocytosis SLIGHT 01/29/20 07:47 Anisocytosis 2+ 01/30/20 04:30 Tear Drop Cells SLIGHT 01/29/20 07:47 Ovalocytes SLIGHT 01/29/20 07:47 ESR 15 mm/hr (0-30) 01/29/20 07:47 Sodium 135.6 mmol/L (137-145) L 01/31/20 09:47 Potassium 4.2 mmol/L (3.6-5.0) 01/31/20 09:47 Chloride 102 mmol/L (98-107) 01/31/20 09:47 Carbon Dioxide 24 mmol/L (22-30) 01/31/20 09:47 Anion Gap 10 (5-19) 01/31/20 09:47 BUN 10 mg/dL (7-20) 01/31/20 09:47 Creatinine 0.62 mg/dL (0.52-1.25) 01/31/20 09:47 Est GFR ( Amer) > 60 (>60) 01/31/20 09:47 Est GFR (MDRD) Non-Af > 60 (>60) 01/31/20 09:47 Glucose 158 mg/dL (75-110) H 01/31/20 09:47 POC Glucose 129 mg/dL (70-110) H 01/31/20 07:56 Hemoglobin A1c % 5.3 % (4.7-6.0) 01/30/20 04:30 Serum Osmolality 252 mOsm/kg (275-301) L 01/29/20 07:47 Calcium 9.4 mg/dL (8.4-10.2) 01/31/20 09:47 Phosphorus 3.6 mg/dL (2.5-4.5) 01/30/20 04:30 Magnesium 2.1 mg/dL (1.6-2.3) 01/30/20 04:30 Total Bilirubin 0.4 mg/dL (0.2-1.3) 01/29/20 07:47 Direct Bilirubin 0.0 mg/dL (0.0-0.4) 01/29/20 07:47 Neonat Total Bilirubin Not Reportable 01/29/20 07:47 Neonat Direct Bilirubin Not Reportable 01/29/20 07:47 Neonat Indirect Bili Not Reportable 01/29/20 07:47 AST 22 U/L (14-36) 01/29/20 07:47 ALT 18 U/L (<35) 01/29/20 07:47 Alkaline Phosphatase 82 U/L (38-126) 01/29/20 07:47 Creatine Kinase 48 U/L (30-135) 01/29/20 07:47 CK-MB (CK-2) 1.14 ng/mL (<4.55) 01/29/20 07:47 Troponin I < 0.012 ng/mL 01/29/20 10:43 C-Reactive Protein < 5.0 mg/L (<10.0) 01/29/20 07:47 Total Protein 7.0 g/dL (6.3-8.2) 01/29/20 07:47 Albumin 4.3 g/dL (3.5-5.0) 01/29/20 07:47 Urine Osmolality 302 mOsm/kg (300-900) 01/29/20 10:57 Urine Creatinine 44.3 mg/dL (15-278) 01/29/20 10:57 Urine Sodium 24 mmol/L (30-90) L 01/29/20 10:57 Urine Potassium 27.5 mmol/L (22-164) 01/29/20 10:57 01/29/20 01/29/20 07:47 10:43 CK-MB (CK-2) 1.14 Troponin I < 0.012 < 0.012 Impressions: Head CTA 01/29/20 00:00 IMPRESSION: NO CTA EVIDENCE OF STENOSIS OR ANEURYSM OF THE [place]. NO CTA EVIDENCE OF CERVICAL CAROTID DISSECTION OR SIGNIFICANT CAROTID BIFURCATION STENOSIS. VERTEBRAL ARTERIES PATENT. Neck CTA 01/29/20 00:00 IMPRESSION: NO CTA EVIDENCE OF STENOSIS OR ANEURYSM OF THE [place]. NO CTA EVIDENCE OF CERVICAL CAROTID DISSECTION OR SIGNIFICANT CAROTID BIFURCATION STENOSIS. VERTEBRAL ARTERIES PATENT. Chest X-Ray 01/29/20 07:43 IMPRESSION: Focal small less than 1 cm opacity in the right base. Possibly scar or confluence of shadows. Focal airspace disease or pulmonary nodule cannot be excluded. Hand X-Ray 01/30/20 00:00 IMPRESSION: NEGATIVE STUDY OF THE RIGHT AND LEFT HANDS. NO RADIOGRAPHIC EVIDENCE OF ACUTE INJURY. Plan Time Spent: Greater than 30 Minutes Stroke Is this a Stroke Patient?: No Acute Heart Failure - Is this a Heart Failure Patient?: No
== END 2020-01-31 12:09 | disposition home or self-care (01) | DRG 641 ==
LOC: ER 07:16 → INTOOBSV 11:07 → EH 11:07 → 4N 13:12 → 3W 14:01 → OBSVTOIN 01-30 10:33
PROVIDERS: ADMIT Internal Medicine; ATTEND Internal Medicine
DX: E87.1 Hypo-osmolality and hyponatremia (principal); R55 Syncope and collapse; I10 Essential (primary) hypertension; E78.5 Hyperlipidemia, unspecified; E11.9 Type 2 diabetes mellitus without complications; M79.642 Pain in left hand; M79.641 Pain in right hand; Z79.84 Long term (current) use of oral hypoglycemic drugs; Z79.899 Other long term (current) drug therapy
CPT/HCPCS: 36415; 70496; 70498; 71046; 80048; 80053; 82550; 82553; 82570; 82962; 83036; 83735; 83930; 83935; 84100; 84133; 84300; 84484; 85025; 85652; 86140; 93005; 93010; 93306; 96374; 99285; G0378; J1650; J1885; J2270; J7030